=== PATIENT | male | born 1960 | race Caucasian/White ===

== ENCOUNTER → 2016-12-11 | Outpatient (CLI) | payer BC, OTHER ==
--- NOTE | 2016-12-11 11:01 | RADRPT ---
PROCEDURE: Left knee radiographs. CLINICAL INDICATION: Left knee pain. TECHNIQUE: Three views. Weight bearing. Frontal, lateral, and patellar view. COMPARISON: No prior studies are available for comparison. FINDINGS: There is no fracture or dislocation. The soft tissues are normal. There are degenerative changes with osteophytes arising from all 3 joint compartment margins. There is no lytic or blastic lesion. There is no radiopaque foreign body. IMPRESSION: 1. Mild degenerative changes of the left knee. 2. Otherwise unremarkable study. RPTAT: QQ .Shaun Coe MD, MD Date Time Electronically viewed and signed by .Shaun Coe MD, MD on 12/11/2016 11:01 .R/
--- NOTE | 2016-12-12 04:34 | HKNOTE ---
DATE OF SERVICE: 12/11/2016 MAIN COMPLAINT: Pain in the left knee. HISTORY OF MAIN COMPLAINT: The patient is a 55-year-old male who complains of pain in his left knee . The problem started 6 weeks ago with a sudden onset. He was downloading a very heavy box at work when he twisted his left knee. He had a sudden onset of pain in the knee. He had mild pain for th e next few days. Although the pain is much improved, he continues to have mild pain and he is "conc erned." He states that he has never had any problem with the left knee prior to 6 weeks ago. PRESENT COMPLAINTS: The pain is on the medial side of the knee with radiation to the calf and popli teal fossa. The knee swells. There is no locking. The knee occasionally feels unstable. He mostl y gets pain in the quadriceps. His pain is aggravated by squatting. He is not taking any medications for the pain. He does get nu mbness and tingling in the leg. He is not using a walking aid. He can walk as far as he likes. Hi s leg lengths feel equal. He does not have a shoe lift. He can clip his toenails and tie his shoel aces. SPORTING ACTIVITIES: "Any, all sports." PAST ORTHOPEDIC HISTORY: Right hip replacement by Dr. Humphries 10 years ago, completely satisfied with the result. PRIOR CORTISONE INTAKE: None. PRIOR ALCOHOL INTAKE: None. OTHER JOINT PROBLEMS: None. BLOOD TESTS FOR ARTHRITIS: None. PRIOR INJURIES TO HIPS OR KNEES: None. WORK STATUS: Office work. PAST MEDICAL HISTORY: Diabetes and hypertension. DRUG ALLERGIES: NONE LISTED. FAMILY HISTORY: Father of tuberculosis at unstated age. Mother age 84, alive and well. SYSTEMS REVIEW: Not completed. PHYSICAL EXAMINATION: GENERAL: A remarkably fit looking and youthful 55-year-old male. He walks without a walking aid. His gait is normal. VITAL SIGNS: Height 5 feet 11 inches, weight 194 pounds. Blood pressure 150/97 (patient states nithin t it is "because I am around a white coat."), temperature 98.5. HIPS: Both hips have full range of motion without pain. LEFT KNEE: The left knee shows normal alignment. Extension is full and normal. Flexion lacks 20 deg enedina (painful). The medial and lateral collateral ligaments and cruciate ligaments are intact. Lachm an test is negative. There is 1+ effusion, tender over the medial joint line. There is no scarring, crepitus, or cysts. The patella tracks normally. There is no tenderness on the articular surface of the patella or in the patellar groove. The Q angle is normal. IMAGING: Plain x-rays of the left knee obtained today at the [facility] were rev iewed. These show considerable degenerative osteoarthritis of the patellofemoral joint with complet e loss of articular cartilage, osteophytes and subchondral sclerosis. The medial and lateral compartments of the knee show slight narrowing of the joint spaces. DIAGNOSES: 1. Preexisting degenerative osteoarthritis of the left knee. 2. Probable internal derangement of the left knee. MANAGEMENT: Under sterile conditions, the patient given injection of 3 mL of Kenalog and 4 mL 2% li docaine into the left knee. He is being sent for an MRI of the left knee, and he will be seen again thereafter for reevaluation and treatment. Dictated By: RANGEL RUST/KAY Conf#: [id number] DID#: [id number]
== END | disposition home or self-care (01) ==
LOC: HKI 10:29
DX: M17.12 Unilateral primary osteoarthritis, left knee (principal); Z96.641 Presence of right artificial hip joint
CPT/HCPCS: 20610; 73562; G0463

== ENCOUNTER → 2017-03-22 | Outpatient (CLI) | END | disposition home or self-care (01) ==

== ENCOUNTER 2017-04-09 05:32 | Day surgery (SDC) | END 2017-04-09 10:25 | disposition home or self-care (01) ==

== ENCOUNTER → 2017-04-26 | Outpatient (CLI) | END | disposition home or self-care (01) ==